=== PATIENT | male | born 1940 | race Caucasian/White ===

== ENCOUNTER → 2016-06-09 | Outpatient (CLI) | payer OTHER ==
[~2016-06-09] MED LIST: CEFUROXIME500 MG PO; DEXILANT60 MG PO; ELIQUIS 5 MG TAB5 MG PO; FINASTERIDE5 MG PO; FLOMAX 0.4 MG0.4 MG PO; HYDROCHLOROTHIA25 MG PO; IMDUR ER TAB 6060 MG PO; LINZESS145 MCG PO; LIPITOR TAB 1010 MG PO; MECLIZINE HCL25 MG PO; METOPROLOL TAR100 MG PO; MULTAQ400 MG PO; NITROSTAT 0.40.4 MG SL; PLAQUENIL 200200 MG PO; PULMICORT FLE180 MCG INH; RANEXA1000 MG PO; VENTOLIN HFA 66.7 GM INH; VITAMIN B12-FO1 EACH PO; VITAMIN D 11000 UNIT PO; ZANTAC 150 MG150 MG PO
== END ==
LOC: RT 11:27 → LAB 11:27
DX: R42 Dizziness and giddiness (principal); R94.39 Abnormal result of other cardiovascular function study

== ENCOUNTER → 2016-07-11 | Outpatient (CLI) | payer OTHER | LOC: US 10:30 → ECHO 11:00 | DX: R06.02 Shortness of breath (principal); I48.0 Paroxysmal atrial fibrillation; R55 Syncope and collapse; R42 Dizziness and giddiness; Z95.0 Presence of cardiac pacemaker; I07.1 Rheumatic tricuspid insufficiency; I34.0 Nonrheumatic mitral (valve) insufficiency; I35.0 Nonrheumatic aortic (valve) stenosis; I51.7 Cardiomegaly | CPT/HCPCS: ECHO; 93306 ==